=== PATIENT | female | born 1980 | race Caucasian/White ===

== ENCOUNTER 2022-08-04 15:48 | Day surgery (SDC) | payer OTHER ==
[2022-08-04] MEDS ORDERED: Xylocaine 1% Vial 30 ML PF IJ ONE (15:49)
[2022-08-04] MEDS ORDERED: Marcaine Mpf 0.5% Vial 30 Ml IJ ONE (15:49)
[2022-08-04] MEDS ORDERED: Depo-Medrol 40 MG/ML IM ONE (15:49)
--- NOTE | 2022-08-04 18:58 | XRAY ---
Indication: Bilateral SI joint injection. Intraoperative fluoroscopy provided for 20 seconds. 4 digital spot images submitted for interpretation demonstrates posterior needle tip projecting over the left and right SI joints. Correlate with intraoperative findings/report.
--- NOTE | 2022-08-05 08:55 | XRAY ---
20 seconds fluoroscopy time in surgery for injections of both SI joints.
== END 2022-08-04 17:55 | disposition home or self-care (01) ==
LOC: SDC-PAIN 15:48
PROVIDERS: ATTEND Psychiatry & Neurology Pain Medicine
DX: M46.1 Sacroiliitis, not elsewhere classified (principal); Z79.899 Other long term (current) drug therapy
CPT/HCPCS: 27096; 72202; 77002; 81025; G0260; J1030; J2001

== ENCOUNTER 2022-09-01 12:34 | Day surgery (SDC) | payer OTHER ==
[2022-09-01] MEDS ORDERED: BUPIVACAINE 0.5% VIAL IJ ONE (12:35)
[2022-09-01] MEDS ORDERED: Depo-Medrol 40 MG/ML IM ONE (12:35)
[2022-09-01] MEDS ORDERED: Xylocaine 1% Vial 30 ML PF IJ ONE (12:35)
--- NOTE | 2022-09-01 16:41 | XRAY ---
17 seconds of fluoroscopy was used in surgery for a left intra-articular hip injection.
--- NOTE | 2022-09-01 16:42 | XRAY ---
Indication: Left hip injection. Intraoperative fluoroscopy provided for 17 seconds. Single digital spot image submitted for interpretation demonstrates needle tip projecting lateral to the left femur neck. Small amount of contrast injected for needle tip placement. Correlate with intraoperative findings/report.
== END 2022-09-01 15:05 | disposition home or self-care (01) ==
LOC: SDC-PAIN 12:34
PROVIDERS: ATTEND Psychiatry & Neurology Pain Medicine
DX: M16.12 Unilateral primary osteoarthritis, left hip (principal); Z79.899 Other long term (current) drug therapy
CPT/HCPCS: 20610; 73501; 77002; 81025; J1030; J2001; Q9966